=== PATIENT | female | born 1955 | race Caucasian/White ===

== ENCOUNTER 2021-10-27 07:01 | Emergency (ER) | payer BC, OTHER ==
[~2021-10-27] VITALS: Ht 160 cm; Wt 99.8 kg
[2021-10-27 07:01] VITALS: BP_SYST 161
[2021-10-27] MEDS ORDERED: ONDANSETRON 4 MG ODT TAB PO ONE (07:30)
[2021-10-27] MEDS ORDERED: DIPH-TET-PERTUS Vaccine 0.5 ML VIAL (ADACEL) I.M. ONE (07:30)
[2021-10-27 08:58] VITALS: BP_SYST 161
== END 2021-10-27 09:05 | disposition home or self-care (01) ==
LOC: SED 07:01
DX: S00.83XA Contusion of other part of head, initial encounter (principal); Z88.1 Allergy status to other antibiotic agents; W01.0XXA Fall on same level from slipping, tripping and stumbling without subsequent striking against object, initial encounter; Y93.89 Activity, other specified; Y92.89 Other specified places as the place of occurrence of the external cause; Y99.8 Other external cause status
CPT/HCPCS: 70450; 76376; 90471; 90715; 99284; Q0162